=== PATIENT | female | born 1965 | race Caucasian/White ===

== ENCOUNTER 2020-08-07 18:05 | Emergency (ER) | payer OTHER ==
[~2020-08-07] VITALS: Ht 160 cm; Wt 68.0 kg
== END 2020-08-07 22:29 | disposition home or self-care (01) ==
LOC: ER 18:05
DX: M47.892 Other spondylosis, cervical region (principal); R51.9 Headache, unspecified; Z03.818 Encounter for observation for suspected exposure to other biological agents ruled out